=== PATIENT | female | born 1960 | race Caucasian/White ===

== ENCOUNTER → 2020-02-20 | Outpatient (CLI) | payer MEDICARE ==
[2015-01-27 12:53] VITALS: BP 116/51
[~2020-02-20] MED LIST: ATOR10TA60 PO; EXEN10PE3 SQ; FEXO180T81 PO; FLUT9.9S NS; GABA300C18 PO; GLYB5TAB3 PO; HYDR-2145 PO; HYDR-2761 PO; LISI10TA2 PO; METF100010 PO; PIOG15TA42 PO; SPIR25TA5 PO; ZOLP10TA PO
--- NOTE | 2020-02-20 12:17 | KCIC ---
EXAM: Lumbar spine MRI without contrast. HISTORY: Lower back pain. TECHNIQUE: Multiplanar, multisequence magnetic resonance imaging of the lumbar spine was performed without contrast. COMPARISON: None. FINDINGS: There is mild lumbar scoliosis. There is minimal retrolisthesis of L1 on L2. There is degenerative endplate remodeling with anterior osteophytosis at multiple thoracic and lumbar levels. There are multiple endplate Schmorl's nodes. There is edema surrounding a prominent inferior endplate Schmorl's nodes along the anterior inferior aspect of L3, favoring a relative subacute etiology. The conus terminates at T12-L1. At L1-L2, there is a disc bulge and endplate osteophytosis. There is slight retrolisthesis. There is minimal bilateral facet arthropathy. There is mild bilateral foraminal stenosis. At L2-L3, there is a disc bulge and endplate osteophytosis. There is minimal bilateral facet arthropathy. There is no stenosis. At L3-L4, there is a left foraminal to extra foraminal disc protrusion and annular tear and there is a right paracentral to foraminal disc protrusion. These are superimposed on a right lateral predominant disc bulge and endplate osteophytosis. There is mild right greater than left facet arthropathy. There is a right facet joint synovial cyst measuring 9 mm which deviates the right ligamentum flavum. There is severe right and moderate left foraminal stenosis with abutment the exiting L3 nerve roots. There is mild to moderate central canal stenosis. At L4-L5, there is a posterior central disc protrusion and annular tear with minimal inferior extrusion superimposed on a disc bulge and endplate remodeling. Left foraminal disc protrusion and annular tear. There is mild bilateral facet arthropathy. There is mild left foraminal stenosis with abutment of the exiting left L4 nerve root. There is mild central canal stenosis. At L5-S1, there is a posterior central disc protrusion. There is no stenosis. IMPRESSION: 1. Multilevel degenerative change involving the lumbar spine, described in detail above. This is associated with mild bilateral foraminal stenosis at L1-L2, severe right and moderate left foraminal stenosis with abutment the exiting L3 nerve roots and mild to moderate central canal stenosis at L3-L4, and mild left foraminal stenosis with abutment the exiting left L4 nerve root and mild central canal stenosis at L4-L5. 2. Mild scoliosis and minimal retrolisthesis of L1 on L2. Electronically signed by: Michell Ingram MD (02/20/2020 12:13 PM) [facility]
== END | disposition home or self-care (01) ==
LOC: KCIC MRI 10:24
PROVIDERS: ATTEND Family Medicine
DX: M51.27 Other intervertebral disc displacement, lumbosacral region (principal); M47.816 Spondylosis without myelopathy or radiculopathy, lumbar region; M48.061 Spinal stenosis, lumbar region without neurogenic claudication; M41.86 Other forms of scoliosis, lumbar region; M51.46 Schmorl's nodes, lumbar region; M71.38 Other bursal cyst, other site
CPT/HCPCS: 72148

== ENCOUNTER → 2020-03-16 | Outpatient (CLI) | payer MEDICARE ==
[2015-01-27 12:53] VITALS: BP 116/51
[~2020-03-16] MED LIST changes: +ATOR40TA59 PO; +CETI10TA74 PO; +GABA600T7 PO; +IOHEXOL 180 MG/ML 10 ML VIAL. ONE; +LIRA0.6P2 SQ; +LOSA25TA54 PO; +METF500T16 PO; +METH-38 PO; +methylPREDNISolone ACETATE 40 MG/ML VIAL. ONE; +methylPREDNISolone ACETATE 80 MG/ML VIAL. ONE
--- NOTE | 2020-03-16 11:47 | PDOC2 ---
INITIAL PAIN CONSULT DATE OF SERVICE: DOS: DATE: 03/16/20 TIME: 11:40 CHIEF COMPLAINT: Chief Complaint: Low back and bilateral lower extremity pain. 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 Patient is tried Robaxin as well as Flexeril both which helped to a small extent she has had physical therapy in the past is doing some stretching strength exercises on her own currently without significant decrease in pain. Patient rates her disability rating 0-10 10 being the worst is a 10 with family home responsibilities 5 with recreation 9 with social activity 8 with occupation 7 with self-care and 10 of life support activities patient have MRI scan lumbar spine showing L3-4 L4-5 with posterior central disc protrusions and annular tears right paracentral to foraminal disc protrusion L3-4 with superimposed right lateral prominent disc bulge and endplate osteophytosis with severe right and moderate left foraminal stenosis abutment of the exiting L3 nerve roots L4-5 shows disc protrusion annular tear with minimal inferior exterior improvement superimposed on a disc bulge and endplate remodeling. Also mild left foraminal stenosis with abutment of the exiting left L4 nerve root. Patient reports no loss of motor function but significant fatigability of the lower extremities with standing and ambulation. PAST MEDICAL HISTORY: PMH: Diabetes type 2, hypertension, arthritis, obesity PREVIOUS SURGERIES: Past Surgical Hx: Left foot bone spur right foot bone spur left shoulder replacement 2016, gastric bypass 2017, colorectal fissure repair 2019 CURRENT MEDICATIONS: Current Meds: Active Scripts Medications Dose Route/Sig Max Daily Dose Days Date Category Gabapentin 600 Mg Tablet 600 Mg PO TID 03/16/20 Reported Metformin Hcl 500 Mg Tablet 500 Mg PO BIDWMEALS 03/16/20 Reported Atorvastatin Calcium 40 Mg Tablet 1 Tab PO DAILY 03/16/20 Reported Victoza 3-Kamran (Liraglutide) 0.6 Mg/0.1 Ml Pen.injctr 1.8 Mg SQ DAILY 03/16/20 Reported Robaxin-750 (Methocarbamol) 750 Mg Tablet 2 Tab PO TID 30 03/16/20 Reported Losartan Potassium (Losartan Potassium) 25 Mg Tablet 25 Mg PO DAILY 03/16/20 Reported Zyrtec (Cetirizine Hcl) 10 Mg Tablet 1 Tab PO DAILY 03/16/20 Reported Ambien (Zolpidem Tartrate) 10 Mg Tablet 1 Tab PO QHS 01/27/15 Reported Flonase Allergy Relief (Fluticasone Propionate) 9.9 Ml Camilla.susp 9.9 Ml NS 01/27/15 Reported ALLERGIES; Allergies: Coded Allergies: menthol (Unverified Allergy, Severe, swelling, 01/27/15) "herb in [place]" lisinopril (Verified Adverse Reaction, Intermediate, cough, 03/16/20) FAMILY HISTORY: Family Hx: Cancer, heart disease, diabetes, hypertension, hypercholesterolemia. 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 REVIEW OF SYSTEMS: ROS: Positive for those items mentioned in history of present illness, all systems are reviewed, otherwise negative, is complete full and well-documented on patient's chart PHYSICAL EXAM: VS: Blood pressure is 118/58 pulse 69 respirations 18 temperature 97.5 F height is 5 feet 6 inches weight is 225 pounds PE: PHYSICAL EXAMINATION: GENERAL: The patient is awake, alert, oriented, appropriate, very pleasant demeanor HEENT: Shows normocephalic, atraumatic. Extraocular movements are intact and symmetrical. Oral cavity: Mucous membranes moist and pink. Dentition is intac t. NECK: Shows anterior throat supple without palpable lymphadenopathy noted. Swallow reflex symmetrical. CHEST: Shows normal on inspection. Breath sounds are clear bilaterally, no rales rhonchi or wheezes auscultated. HEART: Shows S1, S2 clear. No murmurs auscultated. ABDOMEN: Soft, nontender, nondistended, obese with pannus. No palpable organomegaly is noted. No rebound or guarding demonstrated. BACK: Shows spine grossly in the midline. Normal-appearing cervical lordotic curvature. There is slightly increased thoracic kyphosis, some minor flattening of the lumbar lordotic curvature. Lumbar paraspinous muscles show symmetrical on inspection, on palpation shows some moderate tenderness diffusely throughout the upper, middle and lower distribution of the paraspinous muscles bilaterally and also into the lower thoracic paraspinous musculature, firm and tender, but without specific trigger points, without radiation of pain. The patient has good rotational motion of the lumbar spine, both laterally as well as extension and flexion without significant difficulty. No tenderness over the spinous processes, sacrum or sacroiliac regions. EXTREMITIES: Lower extremities show deep tendon reflexes 1+ in the patellar and tendo calcaneus tendons. Motor exam is 4 on a scale of 5 with right dorsiflexion, extension, quadriceps and hamstring flexion and 4/5 on the left. Peripheral pulses are 1+ posterior tibial. No peripheral edema is noted bilaterally. Lower extremities are warm and dry to touch, equal in color and appearance. Straight leg raise noted to be negative on the right, and left side is negative as well. Gaenslen's and Carlos's maneuvers are negative as well. The patient is able to stand, stand on her toes without loss of balance walks with a slight widened gait but not favoring the right or left lower extremity significantly not use any assistive devices to ambulate. SKIN: Shows warm and dry, good turgor. No edema. No sores, rashes or bruising throughout. IMPRESSION: Impression: 59-year-old female with history of low back and bilateral lower extremity pain worse over the past 6 weeks. MRI scan lumbar spine as noted Hypertension Type 2 diabetes Obesity Arthritis Options were discussed with the patient including conservative medical management physical therapies interventional techniques. Patient would like to pursue interventional techniques. We discussed a lumbar epidural steroid traction using description as well as anatomical models to describe the procedure. Risks were discussed including but not limited to: Bleeding, infection, possibility of epidural hematoma and subsequent neurological compromise, dural puncture, headaches, spinal cord and/or nerve damage, side effects of steroid medication, and poor results regarding pain control. Patient understands wished to proceed. Patient return to clinic in possibly 2 weeks for follow-up with calcis return appointment activity level and side effects to be aware. Procedure is lumbar epidural steroid injection under local anesthetic using sterile prep and drape at the L4-5 level using C-arm fluoroscopic guidance in both AP and lateral views medications injected is 120 mg Depo-Medrol + 10 mL preservative-free normal saline and 2 mL contrast- condition at discharge is stable patient tolerated procedure well had no complications. RITA JIANG MD Mar 16, 2020 11:47
== END | disposition home or self-care (01) ==
LOC: PNCL 09:41
PROVIDERS: ATTEND Anesthesiology
DX: M54.5 Low back pain (principal); M79.662 Pain in left lower leg; M79.661 Pain in right lower leg; E11.9 Type 2 diabetes mellitus without complications; I10 Essential (primary) hypertension; M19.90 Unspecified osteoarthritis, unspecified site; E78.00 Pure hypercholesterolemia, unspecified; Z96.612 Presence of left artificial shoulder joint; Z98.890 Other specified postprocedural states; Z88.8 Allergy status to other drugs, medicaments and biological substances; Z83.3 Family history of diabetes mellitus; Z82.49 Family history of ischemic heart disease and other diseases of the circulatory system; Z80.8 Family history of malignant neoplasm of other organs or systems; Z79.84 Long term (current) use of oral hypoglycemic drugs
CPT/HCPCS: 62323; J1030; J1040; Q9965

== ENCOUNTER → 2020-03-30 | Outpatient (CLI) | payer MEDICARE ==
[2015-01-27 12:53] VITALS: BP 116/51
--- NOTE | 2020-03-30 10:06 | PDOC ---
Progress Note - Pain Clinic Date of Service: DOS: DATE: 03/30/20 TIME: 10:02 Diagnosis: Dx: Lumbar radiculopathy with lumbar spinal stenosis and lumbar degenerative disc disease History or Present Illness: HPI: 59-year-old female returns follow-up status post lumbar epidural steroid action x1. Patient reports about 75% improvement for the first week and a half or so but the pain is returned now in the low back and mostly in the right lower extremity posterior gluteus posterior lateral thigh lateral anterior thigh anterior medial lower leg at times mostly in the back and the right thigh patient reports it is worse with walking standing changing positions initially she is doing much better with distance walking household activities work activities try with greater ease and comfort but the pain is returning now not quite to baseline but still significant in the right lower extremity patient reports is aching sharp tight shooting burning and stabbing can be constant with walking and standing as well as prolonged sitting better with laying down generally does not awaken her from sleep most nights but has over the past few days about every 5-6 hours patient rates her pain as a 10 on scale 10 is worse over the past week 8 on average 5 its least as a 5 today. Patient reports no new motor or sensory deficits no new bowel or bladder incontinence or other complaints. Physical Exam: VS: Blood pressure is 149/59 pulse 87 respirations 16 temperature is 98.1 F weight is 225 pounds PE: PHYSICAL EXAMINATION: GENERAL: The patient is awake, alert, oriented, appropriate, very pleasant demeanor HEENT: Shows normocephalic, atraumatic. Extraocular movements are intact and symmetrical. NECK: Shows anterior throat supple without palpable lymphadenopathy noted. Swallow reflex symmetrical. CHEST: Shows normal on inspection. Breath sounds are clear bilaterally, no ra les rhonchi or wheezes. HEART: Shows S1, S2 clear. No murmurs auscultated. ABDOMEN: Soft, nontender, nondistended, obese. No palpable organomegaly is noted. No rebound or guarding demonstrated. BACK: Shows spine grossly in the midline. Normal-appearing cervical lordotic curvature. There is slightly increased thoracic kyphosis, some minor flattening of the lumbar lordotic curvature. Lumbar paraspinous muscles show symmetrical on inspection, on palpation shows some moderate tenderness diffusely throughout the upper, middle and lower distribution of the paraspinous muscles bilaterally, but without specific trigger points, without radiation of pain. The patient has good rotational motion of the lumbar spine, both laterally as well as extension and flexion without significant difficulty. No tenderness over the spinous processes, sacrum or sacroiliac regions. EXTREMITIES: Lower extremities show deep tendon reflexes 1+ in the patellar and tendo calcaneus tendons. Motor exam is 4 on a scale of 5 with right d orsiflexion, extension, quadriceps and hamstring flexion and 4/5 on the left. Peripheral pulses are 1+ posterior tibial. No peripheral edema is noted bilaterally. Lower extremities are warm and dry to touch, equal in color and appearance. SKIN: Shows warm and dry, good turgor. No edema. No sores, rashes or bruising throughout. Procedure: Procedure: Options were discussed with the patient. Patient's old chart was reviewed as her current medication regimen updated current review of systems updated today as well. We will plan on a second lumbar epidural steroid injection today with fluoroscopic guidance. Risks were discussed including but not limited to: Bleeding, infection, possibility of epidural hematoma and subsequent neurological compromise, dural puncture, headaches, spinal cord and/or nerve damage, side effects of steroid medication, and poor results regarding pain control. Patient understands wished to proceed. Patient will return to the clinic in approximate 2 weeks for follow-up was counseled as return appointment activity level and side effects to be aware of. Medication Injected: Med Injected: Procedure is lumbar epidural steroid injection under local anesthetic using sterile prep and drape at the L4-5 level using C-arm fluoroscopic guidance in both AP and lateral views medications injected is 120 mg Depo-Medrol + 10 mL preservative-free normal saline and 2 mL contrast- condition at discharge is stable patient tolerated procedure well had no complications. Condition at Discharge: Condition at Discharge: Condition at discharge is stable patient tolerated procedure well had no complications. RITA JIANG MD Mar 30, 2020 10:06
== END | disposition home or self-care (01) ==
LOC: PNCL 09:08
PROVIDERS: ATTEND Anesthesiology
DX: M51.16 Intervertebral disc disorders with radiculopathy, lumbar region (principal); M48.061 Spinal stenosis, lumbar region without neurogenic claudication; I10 Essential (primary) hypertension; E11.9 Type 2 diabetes mellitus without complications; E78.00 Pure hypercholesterolemia, unspecified; Z88.8 Allergy status to other drugs, medicaments and biological substances; Z79.899 Other long term (current) drug therapy; Z83.3 Family history of diabetes mellitus; Z79.84 Long term (current) use of oral hypoglycemic drugs
CPT/HCPCS: 62323; J1030; J1040; Q9965

== ENCOUNTER → 2020-04-13 | Outpatient (CLI) | payer MEDICARE ==
[2015-01-27 12:53] VITALS: BP 116/51
[~2020-04-13] MED LIST changes: -IOHEXOL 180 MG/ML 10 ML VIAL. ONE; -methylPREDNISolone ACETATE 40 MG/ML VIAL. ONE; -methylPREDNISolone ACETATE 80 MG/ML VIAL. ONE
--- NOTE | 2020-04-13 09:37 | PDOC ---
Progress Note - Pain Clinic Date of Service: DOS: DATE: 04/13/20 TIME: 09:34 Diagnosis: Dx: Lumbar radiculopathy with lumbar spinal stenosis and lumbar degenerative disc disease History or Present Illness: HPI: 59-year-old female returns follow-up status post lumbar epidural steroid injections x2. Patient reports about 75% improvement overall in her low back and right lower extremity. Patient reports still some pain in the area but much improved she is to increase her activity to greater distance walking doing household activities greater ease and comfort travel with greater ease and comfort as well. Patient reports does not awaken her from sleep at night to sleep about 7 hours at a time feels very good is very pleased with her progress. Patient ports her pain is a 10 on scale 10 is worse over the past week 5 on average 3 at its least is a 3 today. Patient describes pain as aching and sharp in the low back and right lower extremity mostly in the posterior gluteus lateral thigh anterior thigh but again very intermittent in the leg now and doing fairly well. Patient reports no new motor or sensory deficits no new bowel or bladder incontinence or other complaints. Physical Exam: VS: Blood pressure is 132/52 pulse is 80 respirations 18 temperature is 98.0 F height is 5 feet 6 inches weight is 228 pounds PE: PHYSICAL EXAMINATION: GENERAL: The patient is awake, alert, oriented, appropriate, very pleasant demeanor HEENT: Shows normocephalic, atraumatic. Extraocular movements are intact and symmetrical. NECK: Shows anterior throat supple without palpable lymphadenopathy noted. Swallow reflex symmetrical. CHEST: Shows normal on inspection. Breath sounds are clear bilaterally, no rales rhonchi or wheezes. HEART: Shows S1, S2 clear. No murmurs auscultated. ABDOMEN: Soft, nontender, nondistended, obese. No palpable organomegaly is noted. No rebound or guarding demonstrated. BACK: Shows spine grossly in the midline. Normal-appearing cervical lordotic curvature. There is slightly increased thoracic kyphosis, some minor flattening of the lumbar lordotic curvature. Lumbar paraspinous muscles show symmetrical on inspection, on palpation shows some moderate tenderness diffusely throughout the upper, middle and lower distribution of the paraspinous muscles bilaterally, but without specific trigger points, without radiation of pain. The patient has good rotational motion of the lumbar spine, both laterally as well as extension and flexion without significant difficulty. EXTREMITIES: Lower extremities show deep tendon reflexes 1+ in the patellar and tendo calcaneus tendons. Motor exam is 4 on a scale of 5 with right dorsiflexion, extension, quadriceps and hamstring flexion and 4/5 on the left. Peripheral pulses are 1+ posterior tibial. No peripheral edema is noted bilaterally. Lower extremities are warm and dry to touch, equal in color and appearance. SKIN: Shows warm and dry, good turgor. No edema. No sores, rashes or bruising throughout. Procedure: Procedure: Options were discussed with the patient. Patient chart was reviewed as her current medication regimen updated current review of systems updated today as well. As patient is doing quite a bit better she like to hold on any further injections at this time we will have her increase her activity as tolerated maintain stretching strength exercises and daily activities if pain returns significantly we will have her follow-up at that time for potential reinjection. Patient understands and agrees and will follow-up as scheduled. Medication Injected: Med Injected: None Condition at Discharge: Condition at Discharge: Condition at discharge is stable RITA JIANG MD Apr 13, 2020 09:37
== END ==
LOC: PNCL 08:50
PROVIDERS: ATTEND Anesthesiology
DX: M51.16 Intervertebral disc disorders with radiculopathy, lumbar region (principal); M48.061 Spinal stenosis, lumbar region without neurogenic claudication; I10 Essential (primary) hypertension; E11.9 Type 2 diabetes mellitus without complications; E78.00 Pure hypercholesterolemia, unspecified; Z88.8 Allergy status to other drugs, medicaments and biological substances; Z79.899 Other long term (current) drug therapy; Z83.3 Family history of diabetes mellitus; Z79.84 Long term (current) use of oral hypoglycemic drugs
CPT/HCPCS: G0463